=== PATIENT | female | born 1965 | race Two or more races ===

== ENCOUNTER 2020-05-04 20:57 | Emergency (ER) | payer MEDICAID, OTHER ==
[2020-05-04] MEDS ORDERED: hydrOXYzine HCl 50 MG/ML SDV IM ONE (21:02)
[2020-05-04] MEDS ORDERED: Ketorolac 60 MG/2 ML SDV IM ONE (21:02)
[2020-05-04] MEDS ORDERED: Alum Hydroxide/Mag Hydroxide 15 ML, Lidocaine 2% 15 ML PO ONE ×2 (21:03)
--- NOTE | 2020-05-04 21:06 | EDM.PDOC ---
ED HPI GENERAL MEDICAL PROBLEM - General Chief Complaint: Abdominal Pain Stated Complaint: ABDOMINAL PAIN; ITCHY Time Seen by Provider: 05/04/20 21:03 Source of Information: Reports: Patient History Limitations: Reports: No Limitations - History of Present Illness INITIAL COMMENTS - FREE TEXT/NARRATIVE: Yolie is here from [place],mourning an ex who . She complains of 3 days of burning epigastric pain, itching. Nothing seems to help. She endorses stress,and moderate use of ETOH and tobacco.She also has uncontrolled HTN abdomen Pain Score (Numeric/FACES): 1 - Related Data Allergies Allergy/AdvReac Type Severity Reaction Status Date / Time Penicillins Allergy Hives Verified 05/04/20 21:36 Home Meds: Home Meds atenoloL [Atenolol] 50 mg PO DAILY 05/04/20 [History] hydroCHLOROthiazide [Hydrochlorothiazide] 25 mg PO DAILY 05/04/20 [History] ED ROS GENERAL - Review of Systems Review Of Systems: Comprehensive ROS is negative, except as noted in HPI. ED EXAM, GI/ABD - Physical Exam Exam: See Below Exam Limited By: No Limitations General Appearance: Alert, WD/WN Ears: Normal External Exam Nose: Normal Inspection Throat/Mouth: Normal Inspection Head: Atraumatic Neck: Normal Inspection Respiratory/Chest: No Respiratory Distress Cardiovascular: Normal Peripheral Pulses #1 Interpretation EKG Date: 05/04/20 Rhythm: NSR Course - Vital Signs Last Recorded V/S: Last Vital Signs Temp 97.6 F 05/04/20 22:15 Pulse 82 05/04/20 22:30 Resp 17 05/04/20 22:30 BP 183/105 H 05/04/20 22:30 Pulse Ox 99 05/04/20 22:30 - Orders/Labs/Meds Orders: Active Orders 24 hr Category Date Time Status EKG 12 Lead [EK] Routine Ther 05/04/20 21:02 Ordered Labs: Laboratory Tests 05/04/20 05/04/20 05/04/20 Range/Units 21:10 21:10 21:10 WBC 11.5 H (3.0-10.3) x10-3/uL RBC 3.86 (3.60-5.20) x10(6)uL Hgb 12.2 (11.4-15.5) g/dL Hct 37.1 (34.2-48.2) % MCV 96.1 (76.7-100.5) fL MCH 31.6 (23.9-33.9) pg MCHC 32.9 (31.9-34.8) g/dL RDW 13.7 (12.3-16.5) % Plt Count 302 (151-488) x10(3)uL MPV 8.2 (7.1-12.4) fL Neut % (Auto) 62.2 (30.8-76.2) % Lymph % (Auto) 30.2 (18.4-52.1) % Johnston % (Auto) 5.4 (4.4-15.7) % Eos % (Auto) 1.4 (0.6-8.1) % Baso % (Auto) 0.8 (0.2-1.5) % Neut # (Auto) 7.2 H (1.5-6.3) x10-3/uL Lymph # (Auto) 3.5 (1.0-4.4) x10-3/uL Johnston # (Auto) 0.6 (0.3-1.0) x10-3/uL Eos # (Auto) 0.2 (0.0-0.8) x10-3/uL Baso # (Auto) 0.1 (0.0-0.1) x10-3/uL Sodium 139 (135-145) mmol/L Potassium 3.2 L (3.5-5.3) mmol/L Chloride 100 (100-110) mmol/L Carbon Dioxide 28 (21-32) mmol/L BUN 19 H (7-18) mg/dL Creatinine 1.1 H (0.55-1.02) mg/dL Est Cr Clr Drug Dosing TNP Estimated GFR (MDRD) 52 L (>60) BUN/Creatinine Ratio 17.3 (9-20) Glucose 99 (80-116) mg/dL Calcium 8.6 (8.6-10.2) mg/dL Total Bilirubin 0.2 (0.1-1.3) mg/dL AST 21 (5-25) IU/L ALT 26 (12-36) U/L Alkaline Phosphatase 202 H (56-112) IU/L Troponin I 15.8 (4.0-60.3) pg/mL Total Protein 7.6 (6.0-8.0) g/dL Albumin 3.4 L (3.5-5.2) g/dL Globulin 4.2 g/dL Albumin/Globulin Ratio 0.8 Amylase 61 (25-115) U/L Meds: Medications Discontinued Medications Generic Name Dose Route Start Last Admin Trade Name Rabia PRN Reason Stop Dose Admin Clonidine HCl 0.1 mg 05/04/20 22:01 05/04/20 22:05 Catapres PO 05/04/20 22:02 0.1 mg ONETIME ONE Administration Al Hydroxide/Mg Hydroxide 15 0 ml 05/04/20 21:03 05/04/20 21:40 ml/ Lidocaine HCl 15 ml PO 05/04/20 21:04 30 ml ONETIME ONE Administration Hydroxyzine HCl 50 mg 05/04/20 21:02 05/04/20 21:39 Vistaril IM 05/04/20 21:03 50 mg ONETIME ONE Administration Ketorolac Tromethamine 60 mg 05/04/20 21:02 05/04/20 21:39 Toradol IM 05/04/20 21:03 60 mg ONETIME ONE Administration Departure - Departure Time of Disposition: 07:03 Disposition: Home, Self-Care 01 Condition: Good Clinical Impression: Epigastric abdominal pain, Pruritic condition - Discharge Information Instructions: Gastroesophageal Reflux Disease, Adult, Managing Your Hypertension Referrals: PCP,None [Primary Care Provider] - Forms: ED Department Discharge Additional Instructions: Take OTC Omeprazole 20 mg 2 x a day. Follow up with your primary care provider as needed. Call if you have any questions or come back to the Clinic or Emergency Room if symptoms get worse in any way. Sepsis Event Note (ED) - Focused Exam Vital Signs: Vital Signs Temp Pulse Resp BP BP Pulse Ox 05/04/20 22:30 82 17 183/105 H 99 05/04/20 22:15 97.6 F 81 16 183/105 H 99 05/04/20 22:05 184/100 H 05/04/20 22:00 88 16 179/102 H 99 05/04/20 21:30 84 16 169/92 H 99 - Problem List & Annotations (1) Epigastric abdominal pain SNOMED Code(s): 78345060 Code(s): R10.13 - EPIGASTRIC PAIN Status: Acute (2) Pruritic condition SNOMED Code(s): 162107090 Code(s): L29.9 - PRURITUS, UNSPECIFIED Status: Acute (3) HTN (hypertension) SNOMED Code(s): 48026980 Code(s): I10 - ESSENTIAL (PRIMARY) HYPERTENSION Status: Acute Qualifiers: Hypertension type: essential hypertension Qualified Code(s): I10 - Essential (primary) hypertension - Problem List Review Problem List Initiated/Reviewed/Updated: Yes - My Orders Last 24 Hours: My Active Orders 05/04/20 21:02 EKG 12 Lead [EK] Routine - Assessment/Plan Last 24 Hours: My Active Orders 05/04/20 21:02 EKG 12 Lead [EK] Routine Plan: All labs looked ok. EKG was non acute. I treated her with GI cocktail, and with Toradol and Vistaril. Advised her to continue with her Meds,including doubling on PPI. 1 dose of Clonidine was given to help with BP,and she should see her PCP tomorrow.
[2020-05-04] MEDS ORDERED: cloNIDine 0.1 MG Tab PO ONE (22:01)
== END 2020-05-04 22:38 | disposition home or self-care (01) ==
LOC: FB.ED 20:57
DX: R10.13 Epigastric pain (principal); L98.9 Disorder of the skin and subcutaneous tissue, unspecified; I10 Essential (primary) hypertension; Z88.0 Allergy status to penicillin; Z79.899 Other long term (current) drug therapy
CPT/HCPCS: 36415; 80053; 82150; 84484; 85025; 93005; 96372; 99284; A9270; J1885; J3410; 93010; 99283

== ENCOUNTER 2020-10-02 15:51 | Emergency (ER) | payer MEDICAID, OTHER ==
[2020-10-02] MEDS ORDERED: Azithromycin 250 MG Tab PO ONE (15:52)
--- NOTE | 2020-10-02 17:42 | EDM.PDOC ---
ED HPI GENERAL MEDICAL PROBLEM - General Chief Complaint: General Stated Complaint: SICK Time Seen by Provider: 10/02/20 17:38 Source of Information: Reports: Patient History Limitations: Reports: No Limitations - History of Present Illness INITIAL COMMENTS - FREE TEXT/NARRATIVE: Yolie complains of upper resp symptoms for 3-5 days. They include nasal blockage,headache,aural fullness and a cough. She was exposed to COVID-19 a few days ago,but denies any recent fever or chills.She endorses a h/o HTN,tobaco absue and anxiety. Bilateral rib pain Pain Score (Numeric/FACES): 2 - Related Data Allergies Allergy/AdvReac Type Severity Reaction Status Date / Time Penicillins Allergy Hives Verified 10/02/20 16:03 Home Meds: Home Meds atenoloL [Atenolol] 50 mg PO DAILY 05/04/20 [History] hydroCHLOROthiazide [Hydrochlorothiazide] 25 mg PO DAILY 05/04/20 [History] Divalproex Sodium [Depakote] 125 mg PO TID 10/02/20 [History] LORazepam [Ativan] 0.5 mg PO DAILY 10/02/20 [History] buPROPion [Wellbutrin SR] 50 mg PO DAILY 10/02/20 [History] Past Medical History Cardiovascular History: Reports: High Cholesterol, Hypertension Respiratory History: Reports: Other (See Below) Other Respiratory History: chronic smoker. Gastrointestinal History: Reports: GERD, PUD PUPPET MASTER History: Reports: Other PUPPET MASTER History: [id number] Musculoskeletal History: Reports: Fracture, RA Other Musculoskeletal History: hx fx R clavicle, Neurological History: Reports: Seizure Psychiatric History: Reports: Anxiety, Depression, Panic Attack, Psych Hospitalization(s) Other Psychiatric History: hx ETOH abuse, hx cocaine abuse Endocrine/Metabolic History: Reports: Obesity/BMI 30+ Immunologic History: Reports: Other (See Below) Other Immunologic History: hx Lupus - Infectious Disease History Infectious Disease History: Reports: Chicken Pox, Measles, MRSA, Mumps - Past Surgical History HEENT Surgical History: Reports: Adenoidectomy, Myringotomy w Tube(s), Tonsillectomy GI Surgical History: Reports: EGD Social & Family History - Family History Family Medical History: No Pertinent Family History - Tobacco Use Tobacco Use Status *Q: Current Every Day Tobacco User Years of Tobacco use: 20 Packs/Tins Daily: 0.3 - Caffeine Use Caffeine Use: Reports: Coffee, Energy Drinks, Soda, Tea - Recreational Drug Use Recreational Drug Use: Yes Recreational Drug Type: Reports: Cocaine, Marijuana/Hashish Other Recreational Drug Type: Has hx cocaine & pot abuse, has been in tx for same, hasn't used in 22yrs. Recreational Drug Use Frequency: Not Used In Over 6 Months ED ROS GENERAL - Review of Systems Review Of Systems: Comprehensive ROS is negative, except as noted in HPI. ED EXAM, GENERAL - Physical Exam Exam: See Below Exam Limited By: No Limitations General Appearance: Alert, WD/WN, No Apparent Distress Ears: Normal External Exam Nose: Normal Inspection Throat/Mouth: Normal Inspection Head: Atraumatic Neck: Normal Inspection Respiratory/Chest: No Respiratory Distress, Lungs Clear Cardiovascular: Normal Peripheral Pulses, Regular Rate, Rhythm Course - Vital Signs Last Recorded V/S: Last Vital Signs Temp 97.9 F 10/02/20 15:55 Pulse 90 10/02/20 17:25 Resp 20 10/02/20 17:25 BP 190/105 H 10/02/20 17:25 Pulse Ox 100 10/02/20 17:25 - Orders/Labs/Meds Orders: Active Orders 24 hr Category Date Time Status cloNIDine [Catapres] Med 10/02/20 17:37 Once 0.1 mg PO ONETIME ONE Labs: Laboratory Tests 10/02/20 Range/Units 16:39 SARS-CoV-2 RNA ([facility]) Negative (NEGATIVE) Departure - Departure Time of Disposition: 17:41 Disposition: Home, Self-Care 01 Clinical Impression: HTN (hypertension) Qualifiers: Hypertension type: essential hypertension Qualified Code(s): I10 - Essential (primary) hypertension - Discharge Information Sepsis Event Note (ED) - Evaluation Sepsis Screening Result: No Definite Risk - Focused Exam Vital Signs: Vital Signs Temp Pulse Resp BP Pulse Ox 10/02/20 17:25 90 20 190/105 H 100 10/02/20 16:55 86 18 185/110 H 100 10/02/20 15:55 97.9 F 93 18 181/99 H 100 - Problem List & Annotations (1) Acute sinus infection SNOMED Code(s): 10529320 Code(s): J01.90 - ACUTE SINUSITIS, UNSPECIFIED Status: Acute Qualifiers: Sinusitis location: frontal (2) Tobacco abuse SNOMED Code(s): 190218481 Code(s): Z72.0 - TOBACCO USE Status: Acute (3) HTN (hypertension) SNOMED Code(s): 65384001 Code(s): I10 - ESSENTIAL (PRIMARY) HYPERTENSION Status: Acute Qualifiers: Hypertension type: primary hypertension Qualified Code(s): I10 - Essential (primary) hypertension - Problem List Review Problem List Initiated/Reviewed/Updated: Yes - My Orders Last 24 Hours: My Active Orders 10/02/20 17:37 cloNIDine [Catapres] 0.1 mg PO ONETIME ONE - Assessment/Plan Last 24 Hours: My Active Orders 10/02/20 17:37 cloNIDine [Catapres] 0.1 mg PO ONETIME ONE Plan: COVID test was negative. I gaver her Clonidine and a Zpak to take home
[2020-10-02] MEDS: cloNIDine 0.1 MG Tab PO ONE (17:55)
== END 2020-10-02 18:08 | disposition home or self-care (01) ==
LOC: FB.ED 15:51
DX: I10 Essential (primary) hypertension (principal); Z20.822 Contact with and (suspected) exposure to COVID-19; Z88.0 Allergy status to penicillin; Z72.0 Tobacco use
CPT/HCPCS: 99283; A9270-GY; U0002